=== PATIENT | female | born 2000 | race Caucasian/White ===

== ENCOUNTER 2020-08-28 20:14 | Emergency (ER) | payer OTHER ==
[~2020-08-28] VITALS: Ht 162 cm; Wt 97.9 kg
[~2020-08-28 20:14] MED LIST: AMOX-355 PO; AMX500CIP PO; CETI10TA17 PO; HYDR50CA PO; MELO-170 PO; NITR-65 PO; NYST1POW22 TP; PHEN-639 PO; PRD20T PO; TERB30CR TP
[2020-08-28 20:30] VITALS: BP 141/88
[2020-08-28] MEDS ORDERED: TRIM/SULFAMETH 160/800 (SEPTRA DS) TAB PO ONE (21:00)
[2020-08-28] MEDS ORDERED: SULF1TAB35 PO (21:05)
--- NOTE | 2020-08-28 21:05 | ED Integumentary General ---
General Chief Complaint: Skin/Wound Problems Stated Complaint: L THIGH POSS SPIDER BITE Nursing Triage Note: C/O POSSIBLE SPIDER BITE ON LEFT THIGH. FIRST NOTICED ON FRIDAY MORNING. SINCE HAS INCREASED IN REDNESS AND SWELLING AND PAIN. Source: patient Exam Limitations: no limitations History of Present Illness Date Seen by Provider: Aug 28, 2020 Time Seen by Provider: 20:45 Initial Comments Patient presents ER by private conveyance from home with her mother and chief complaint since Friday, 2 days ago she has noticed a knot that is painful nondraining from her left thigh. Painful to walk on. No fever chills nausea vomiting diarrhea. Surrounding redness. She did not see an insect or spider bite her but she suspects this is what happened. She is on control Allergies and Home Medications Allergies Coded Allergies: No Known Drug Allergies (Unverified , 03/16/13) Home Medications Amoxicillin/Potassium Clav 1 Each Tablet, 1 EACH PO BID, (Reported) Hydroxyzine Pamoate 50 Mg Capsule, 50 MG PO Q6H Prescribed by: ТАТЬЯНА RUSS on 01/27/18205 Meloxicam 7.5 Mg Tablet, 7.5 MG PO DAILY Prescribed by: JACQUI ROSE on 08/17/151834 Nitrofurantoin Monohyd/M-Cryst 100 Mg Capsule, 1 TAB PO BID Prescribed by: JACQUI ROSE on 08/17/151834 Nystatin 1 Each Powder.ea., 1 EACH TP TID Prescribed by: ТАТЬЯНА RUSS on 01/27/18205 Phenazopyridine HCl 100 Mg Tablet, 100 MG PO Q8H PRN for PAIN Prescribed by: JACQUI ROSE on 08/17/151834 Prednisone 20 Mg Tab, 40 MG PO DAILY Take 3 tabs(60mg)daily, decrease by 1/2 tab(10mg)daily. Prescribed by: JACQUI ROSE on 08/17/151834 Sulfamethoxazole/Trimethoprim 1 Each Tablet, 1 EACH PO BID Prescribed by: SHERYL RANGEL on 08/28/202104 Terbinafine HCl 30 Gm Cream..g., 30 GM TP TID Prescribed by: ТАТЬЯНА RUSS on 01/27/18205 Patient Home Medication List Home Medication List Reviewed: Yes Review of Systems Review of Systems Constitutional: No chills, No fever, No malaise EENTM: No ear discharge, No ear pain Respiratory: No cough, No short of breath Cardiovascular: No edema, No palpitations Gastrointestinal: No abdominal pain, No nausea Genitourinary: No discharge, No dysuria Musculoskeletal: No back pain, No joint pain Skin: see HPI, change in color Past Rsuyfso-Ipdbwz-Oigzkf Hx Patient Social History Alcohol Use: Denies Use 2nd Hand Smoke Exposure: Yes Recent Infectious Disease Expo: No Recent Hopitalizations: No Immunizations Up To Date PED Vaccines UTD: Yes Seasonal Allergies Seasonal Allergies: Yes (ZYRTEC) Past Medical History Surgeries: Yes (NASAL SURGERY) Respiratory: No Cardiac: No Neurological: No Genitourinary: No Gastrointestinal: No Musculoskeletal: No Endocrine: No HEENT: No Cancer: No Psychosocial: No Integumentary: No Blood Disorders: No Adverse Reaction/Blood Tranf: No Family Medical History No Pertinent Family Hx Physical Exam Vital Signs Vital Signs - First Documented 08/28/20 20:30 Temp 35.4 Pulse 72 Resp 18 B/P (MAP) 141/88 (105) Pulse Ox 98 O2 Delivery Room Air Capillary Refill : Less Than 3 Seconds General Appearance: WD/WN, no apparent distress HEENT: PERRL/EOMI, pharynx normal Cardiovascular: normal peripheral pulses, regular rate, rhythm Respiratory: no respiratory distress, no accessory muscle use Extremities: normal capillary refill, other (Erythema, calor, tenderness measuring about 6 x 12 cm and outlined with a marker. Central pore but no exudate or drainage. No fluctuance. Area of about 4 cm diameter indurated) Neurologic/Psychiatric: alert, normal mood/affect, oriented x 3 Progress/Results/Core Measures Results/Orders My Orders Orders - SHERYL RANGEL Sulfamethoxazole/Trimet Ds Tab (Bactrim (08/28/20 21:00) Medications Given in ED Current Medications Medications Dose Ordered Sig/Jamar Route Start Time Stop Time Status Last Admin Dose Admin Trimethoprim/ Sulfamethoxazole 1 ea ONCE ONCE PO 08/28/20 21:00 08/28/20 21:01 DC 08/28/20 21:20 1 EA Vital Signs/I&O 08/28/20 20:30 Temp 35.4 Pulse 72 Resp 18 B/P (MAP) 141/88 (105) Pulse Ox 98 O2 Delivery Room Air Blood Pressure Mean: 105 Progress Progress Note : Time: 03:53 Progress Note Erysipelas. We will put her on antibiotics. Conservative counseling and return precautions given. Departure Impression Primary Impression: Erysipelas of left lower extremity Additional Impression: Arthropod bite of left thigh Qualified Codes: S70.362A - Insect bite (nonvenomous), left thigh, initial encounter; W57.XXXA - Bitten or stung by nonvenomous insect and other nonvenomous arthropods, initial encounter Disposition: 01 HOME, SELF-CARE Condition: Stable Departure-Patient Inst. Decision time for Depature: 21:03 Referrals: JESSENIA BOWDEN DO (PCP/Family) Primary Care Physician Patient Instructions: Cellulitis and Erysipelas (Skin Infections) Add. Discharge Instructions: The initial bite is not the problem however bacterial infection subsequent to the bite is what causes most of the redness and pain. Warm moist heat applied directly over the wound as often as necessary for pain is encouraged. Tylenol and Motrin as necessary. Bactrim 1 tablet twice a day with food for the next week. Expect to see improvement by day 3 or 4 on antibiotics. Return to the ER promptly for severe fever above 102.5, intractable vomiting, intractable pain or other worrisome symptoms such as redness and swelling going up into your trunk. All discharge instructions reviewed with patient and/or family. Voiced understanding. Scripts Sulfamethoxazole/Trimethoprim (Bactrim Ds Tablet) 1 Each Tablet 1 EACH PO BID for 7 Days, #14 TAB 0 Refills Prov: SHERYL RANGEL 08/28/20 SHERYL RANGEL Aug 28, 2020 21:05
== END 2020-08-28 21:18 | disposition home or self-care (01) ==
LOC: EDUNIT# 20:14 → ER 20:16
DX: S70.362A Insect bite (nonvenomous), left thigh, initial encounter (principal); A46 Erysipelas; Z77.22 Contact with and (suspected) exposure to environmental tobacco smoke (acute) (chronic); Z79.52 Long term (current) use of systemic steroids; W57.XXXA Bitten or stung by nonvenomous insect and other nonvenomous arthropods, initial encounter
CPT/HCPCS: 99283

== ENCOUNTER 2023-03-13 11:55 | Emergency (ER) | payer OTHER ==
[~2023-03-13] VITALS: Ht 160 cm; Wt 104.0 kg
[~2023-03-13 11:55] MED LIST changes: +SULF1TAB38 PO
--- NOTE | 2023-03-13 12:14 | ED Abdominal Pain ---
General Stated Complaint: PELVIC PAIN Source of Information: Patient Exam Limitations: No Limitations History of Present Illness Date Seen by Provider: Mar 13, 2023 Time Seen by Provider: 12:12 Initial Comments Patient is a 22-year-old female who presents the ED with lower abdominal pain. Pain started this morning when she woke up. Pain is described as sharp located bilateral lower pelvic worse to right lower quadrant. Pain is worse with movement. She reports nausea without vomiting. Few episodes of diarrhea. Denies of any urinary symptoms such as pain with urination frequent urination, dysuria. She denies any vaginal bleeding. Is scheduled for her menstrual cycle here in the next 1 to 2 weeks. Not concern for STDs. Denies any vaginal discharge. History of regular menstrual cycles for the past 6 months. Stopped control 6 months ago. Denies history of previous abdominal surgery. Denies taking thing for pain. She denies chest pain, shortness of breath, cough, headache, dizziness Allergies and Home Medications Allergies Coded Allergies: No Known Drug Allergies (Unverified , 03/16/13) Patient Home Medication List Home Medication List Reviewed: Yes Amoxicillin/Potassium Clav (Augmentin 500-125 Tablet) 1 Each Tablet, 1 EACH PO BID, (Reported) Entered as Reported by: RADHA PARK on 08/17/15 1623 Cephalexin (Cephalexin) 500 Mg Tablet, 500 MG PO QID Prescribed by: SIGIFREDO HOOKS on 03/13/23 1401 Hydroxyzine Pamoate (Vistaril) 50 Mg Capsule, 50 MG PO Q6H Prescribed by: ТАТЬЯНА RUSS on 01/27/18205 Meloxicam (Mobic) 7.5 Mg Tablet, 7.5 MG PO DAILY Prescribed by: JACQUI ROSE on 08/17/15 183 Nitrofurantoin Monohyd/M-Cryst (Macrobid 100 mg Capsule) 100 Mg Capsule, 1 TAB PO BID Prescribed by: JACQUI ROSE on 08/17/151834 Nystatin (Nystatin) 1 Each Powder.ea., 1 EACH TP TID Prescribed by: ТАТЬЯНА RUSS on 01/27/18205 Ondansetron (Ondansetron Odt) 4 Mg Tab.rapdis, 4 MG SL Q4H PRN for NAUSEA/VOMITING Prescribed by: SIGIFREDO HOOKS on 03/13/23 1402 Phenazopyridine HCl (Pyridium) 100 Mg Tablet, 100 MG PO Q8H PRN for PAIN Prescribed by: JACQUI ROSE on 08/17/151834 Prednisone (Prednisone) 20 Mg Tab, 40 MG PO DAILY Prescribed by: JACQUI ROSE on 08/17/151834 Sulfamethoxazole/Trimethoprim (Bactrim Ds Tablet) 1 Each Tablet, 1 EACH PO BID Prescribed by: SHERYL RANGEL on 08/28/202104 Terbinafine HCl (Lamisil At) 30 Gm Cream..g., 30 GM TP TID Prescribed by: ТАТЬЯНА RUSS on 01/27/18 0206 Review of Systems Review of Systems Constitutional: No chills, No diaphoresis EENTM: No Double Vision, No Eye Pain Respiratory: Denies Cough, Denies Orthopnea Cardiovascular: Denies Chest Pain Gastrointestinal: Abdominal Pain; Denies Diarrhea; Nausea; Denies Vomiting Genitourinary: Denies Burning, Denies Discharge, Denies Drainage, Denies Frequency Musculoskeletal: No back pain, No joint pain Skin: No change in color All Other Systems Reviewed Negative Unless Noted: Yes Past Svwztzi-Rvzlph-Jdukwv Hx Immunizations Up To Date PED Vaccines UTD: Yes Seasonal Allergies Seasonal Allergies: Yes (ZYRTEC) Past Medical History Surgeries: Yes (NASAL SURGERY) Respiratory: No Cardiac: No Neurological: No Genitourinary: No Gastrointestinal: No Musculoskeletal: No Endocrine: No HEENT: No Cancer: No Psychosocial: No Integumentary: No Blood Disorders: No Adverse Reaction/Blood Tranf: No Family Medical History No Pertinent Family Hx Physical Exam Vital Signs Vital Signs - First Documented 03/13/23 03/13/23 12:18 14:15 Temp 37.2 Pulse 98 Resp 16 B/P (MAP) 138/86 (103) Pulse Ox 98 O2 Delivery Room Air Capillary Refill : Height/Weight/BMI Height: 5'3.00" Weight: 210lbs. oz. 95.460204yj; 37.00 BMI Method:Stated General Appearance: WD/WN, no apparent distress HEENT: PERRL/EOMI, normal ENT inspection, TMs normal, pharynx normal Neck: non-tender, full range of motion, supple Respiratory: chest non-tender, lungs clear, normal breath sounds, no respiratory distress, no accessory muscle use Cardiovascular: regular rate, rhythm, no edema, no gallop, no JVD Gastrointestinal: normal bowel sounds, soft, no organomegaly, tenderness (Right lower quadrant tenderness. Normal bowel sounds throughout. No rebound or guarding.) Extremities: normal range of motion, non-tender, normal inspection, no pedal edema, no calf tenderness Neurologic/Psychiatric: [employer] regist[employer] II-XII nml as tested, no motor/sensory deficits, alert, normal mood/affect, oriented x 3 Progress/Results/Core Measures Results/Orders Lab Results Laboratory Tests Test 03/13/23 12:14 03/13/23 12:58 03/13/23 13:50 Range/Units Urine Color YELLOW Urine Clarity CLEAR Urine pH 5.0 5-9 Urine Specific [place] >=1.030 1.016-1.022 Urine Protein NEGATIVE NEGATIVE Urine Glucose (UA) NEGATIVE NEGATIVE Urine Ketones NEGATIVE NEGATIVE Urine Nitrite NEGATIVE NEGATIVE Urine Bilirubin NEGATIVE NEGATIVE Urine Urobilinogen 0.2 < = 1.0 MG/DL Urine Leukocyte Esterase TRACE H NEGATIVE Urine RBC (Auto) NEGATIVE NEGATIVE Urine RBC RARE /HPF Urine WBC 10-25 H /HPF Urine Squamous Epithelial Cells 5-10 /HPF Urine Crystals NONE /LPF Urine Bacteria MODERATE H /HPF Urine Casts NONE /LPF Urine Mucus NEGATIVE /LPF Urine Culture Indicated YES Urine Test NEGATIVE NEGATIVE White Blood Count 14.2 H 4.3-11.0 10^3/uL Red Blood Count 4.68 3.80-5.11 10^6/uL Hemoglobin 12.7 11.5-16.0 g/dL Hematocrit 40 35-52 % Mean Corpuscular Volume 84 80-99 fL Mean Corpuscular Hemoglobin 27 25-34 pg Mean Corpuscular Hemoglobin Concent 32 32-36 g/dL Red Cell Distribution Width 13.6 10.0-14.5 % Platelet Count 409 H 130-400 10^3/uL Mean Platelet Volume 12.1 9.0-12.2 fL Immature Granulocyte % (Auto) 0 % Neutrophils (%) (Auto) 70 42-75 % Lymphocytes (%) (Auto) 21 12-44 % Monocytes (%) (Auto) 6 0-12 % Eosinophils (%) (Auto) 2 0-10 % Basophils (%) (Auto) 1 0-10 % Neutrophils # (Auto) 9.9 H 1.8-7.8 10^3/uL Lymphocytes # (Auto) 3.0 1.0-4.0 10^3/uL Monocytes # (Auto) 0.9 0.0-1.0 10^3/uL Eosinophils # (Auto) 0.3 0.0-0.3 10^3/uL Basophils # (Auto) 0.1 0.0-0.1 10^3/uL Immature Granulocyte # (Auto) 0.1 0.0-0.1 10^3/uL Neutrophils % (Manual) 68 % Lymphocytes % (Manual) 24 % Monocytes % (Manual) 2 % Eosinophils % (Manual) 5 % Basophils % (Manual) 1 % Band Neutrophils 0 % Blood Morphology Comment NORMAL Sodium Level 137 135-145 MMOL/L Potassium Level 4.5 3.6-5.0 MMOL/L Chloride Level 108 H 98-107 MMOL/L Carbon Dioxide Level 16 L 21-32 MMOL/L Anion Gap 13 5-14 MMOL/L Blood Urea Nitrogen 13 7-18 MG/DL Creatinine 0.82 0.60-1.30 MG/DL Estimat Glomerular Filtration Rate 104 BUN/Creatinine Ratio 16 Glucose Level 89 70-105 MG/DL Calcium Level 8.9 8.5-10.1 MG/DL Corrected Calcium 8.9 8.5-10.1 MG/DL Total Bilirubin 0.3 0.1-1.0 MG/DL Aspartate Amino Transf (AST/SGOT) 27 5-34 U/L Alanine Aminotransferase (ALT/SGPT) 30 0-55 U/L Alkaline Phosphatase 81 40-136 U/L Total Protein 7.8 6.4-8.2 GM/DL Albumin 4.0 3.2-4.5 GM/DL Lipase 41 8-78 U/L Smear Scan Micro Results Microbiology 03/13/23 Wet Prep - Final, Complete My Orders Orders - JOY HAMPTON Ua Culture If Indicated (03/13/23 11:58) Cbc And Automated Diff (03/13/23 12:10) Comprehensive Metabolic Panel (03/13/23 12:10) Lipase (03/13/23 12:10) Hcg,Qualitative Urine (03/13/23 12:10) Ct Abd/Pelv W (Appendicitis) (03/13/23 12:10) Ketorolac Injection (Ketorolac Injection (03/13/23 12:30) Ondansetron Injection (Ondansetron Inj (03/13/23 12:30) Urine Culture (03/13/23 12:14) Iohexol Injection (Omnipaque 350 Mg/Ml 1 (03/13/23 12:45) Received Contrast (Hold Metformin- Contr (03/13/23 12:45) Ns (Ivpb) 100 Ml (Sodium Chloride 0.9% 1 (03/13/23 12:45) Manual Differential (03/13/23 12:58) Wet Prep (03/13/23 13:45) Chlamydia Trachomatis Swab (03/13/23 13:45) Neisseria Gonorrhea Swab (03/13/23 13:45) Medications Given in ED Current Medications Medications Dose Ordered Sig/Jamar Route Start Time Stop Time Status Last Admin Dose Admin Ketorolac Tromethamine 30 mg ONCE ONCE IVP 03/13/23 12:30 03/13/23 12:31 DC 03/13/23 12:49 30 MG Ondansetron HCl 4 mg ONCE ONCE IVP 03/13/23 12:30 03/13/23 12:31 DC 03/13/23 12:49 4 MG Vital Signs/I&O 03/13/23 03/13/23 12:18 14:15 Temp 37.2 Pulse 98 80 Resp 16 B/P (MAP) 138/86 (103) 120/91 Pulse Ox 98 98 O2 Delivery Room Air Departure Communication (PCP) Patient is a 22-year-old female with no previous abdominal surgery who presents ED with lower abdominal pain in her pelvic. Scheduled for menstrual cycle 2 days. Nausea with a few episode of diarrhea. Not necessarily concern for STDs. No urinary symptoms. Right and left lower quadrant worse on the right. Bowel sounds noted throughout. CBC, CMP, lipase, urinalysis with wet prep. Self swab. Wet prep was unremarkable. STD cultures pending. Urinalysis with leukocytes and white blood cells concern for UTI. CBC showed elevated white blood count of 14. Chemistry grossly unremarkable. Due to location pain CT abdomen pelvis was ordered. The prominent lymph nodes in the right lower quadrant perhaps the basis of mesenteric adenitis. Free fluid in the pelvis likely owing to recent rupture of an ovarian cyst. She did receive Toradol Zofran with improvement of symptoms. Reassessed the abdomen without any tenderness. No evidence of colitis, appendicitis or diverticulitis. Patient is currently pain-free. Will discharge with Keflex. Alternate Tylenol and ibuprofen at home. If any worsening symptoms such as pain, fever, intractable vomiting to return back to ED. Follow-up your PCP 2 to 3 days for reevaluation. Negative for . Wet prep unremarkable. Impression Primary Impression: Abdominal pain Additional Impression: UTI (urinary tract infection) Disposition: HOME, SELF-CARE Condition: Stable Departure-Patient Inst. Decision time for Depature: 14:01 Referrals: JESSENIA BOWDEN DO (PCP/Family) Primary Care Physician Patient Instructions: Urinary tract infections in adults Add. Discharge Instructions: Recommend taken anti-inflammatories for pain. Recommend staying hydrated. If any worsening pain, fever, vomiting to return back to ED. Scripts Ondansetron (Ondansetron Odt) 4 Mg Tab.rapdis 4 MG SL Q4H PRN for NAUSEA/VOMITING, #6 TAB Prov: JOY HAMPTON 03/13/23 Cephalexin (Cephalexin) 500 Mg Tablet 500 MG PO QID for 7 Days, #14 TAB Prov: JOY HAMPTON 03/13/23 JOY HAMPTON Mar 13, 2023 12:14
[2023-03-13] MEDS ORDERED: ONDANSETRON INJECTION 4 MG/2 ML (SDV) IVP ONE (12:30)
[2023-03-13] MEDS ORDERED: KETOROLAC INJ 30 MG/ML VIAL IVP ONE (12:30)
[2023-03-13 12:35] LABS: CLARITY,URINE CLEAR; COLOR,URINE YELLOW
[2023-03-13 12:36] LABS: BACTERIA,URINE MODERATE /HPF; BILIRUBIN,URINE NEGATIVE (NEGATIVE); GLUCOSE, URINE (UA) NEGATIVE (NEGATIVE); KETONES,URINE NEGATIVE (NEGATIVE); LEUKOCYTE ESTERASE ,URINE TRACE (NEGATIVE); NITRITE,URINE NEGATIVE (NEGATIVE); PROTEIN,URINE NEGATIVE (NEGATIVE); RBC,URINE RARE /HPF
[2023-03-13] MEDS ORDERED: NS 100 ML (IVPB) BAG IV ONE (12:45)
[2023-03-13] MEDS ORDERED: IOHEXOL 350 MG/ML 100 ML (OMNIPAQUE 350) VIAL IV ONE (12:45)
[2023-03-13] MEDS ORDERED: HOLD METFORMIN - RECEIVED CONTRAST 20 ML VIAL IV SCH (12:45)
[2023-03-13 13:03] LABS: BASOPHILS # (AUTO) 0.1 10^3/uL (0.0-0.1); BASOPHILS % (AUTO) 1 % (0-10); EOSINOPHILS # (AUTO) 0.3 10^3/uL (0.0-0.3); EOSINOPHILS % (AUTO) 2 % (0-10); HEMATOCRIT 40 % (35-52); HEMOGLOBIN 12.7 g/dL (11.5-16.0); LYMPHOCYTES % (AUTO) 21 % (12-44); MEAN CORPUSCULAR HEMOGLOBIN 27 pg (25-34); MEAN CORPUSCULAR HGB CONC 32 g/dL (32-36); MEAN CORPUSCULAR VOLUME 84 fL (80-99); MEAN PLATELET VOLUME 12.1 fL (9.0-12.2); MONOCYTES # (AUTO) 0.9 10^3/uL (0.0-1.0); MONOCYTES % (AUTO) 6 % (0-12); NEUTROPHILS # (AUTO) 9.9 10^3/uL (1.8-7.8); NEUTROPHILS % (AUTO) 70 % (42-75); PLATELET COUNT 409 10^3/uL (130-400); WHITE BLOOD COUNT 14.2 10^3/uL (4.3-11.0)
[2023-03-13 13:14] LABS: POTASSIUM 4.5 MMOL/L (3.6-5.0)
[2023-03-13 13:15] LABS: CALCIUM 8.9 MG/DL (8.5-10.1)
[2023-03-13 13:16] LABS: TOTAL PROTEIN 7.8 GM/DL (6.4-8.2)
[2023-03-13 13:18] LABS: BILIRUBIN,TOTAL 0.3 MG/DL (0.1-1.0)
[2023-03-13 13:20] LABS: CREATININE SERUM 0.82 MG/DL (0.60-1.30)
--- NOTE | 2023-03-13 13:35 | Diagnostic Imaging Report ---
PROCEDURE: CT abdomen and pelvis with contrast, rule out appendicitis. TECHNIQUE: Multiple contiguous axial images were obtained through the abdomen and pelvis after the administration of intravenous contrast. All CT scans use one or more of the following dose optimizing techniques: automated exposure control, MA and/or KvP adjustment based on patient size and exam type or iterative reconstruction. INDICATION: Lower abdominal pain and pelvic pain as well as nausea and diarrhea. COMPARISON: No prior studies are available for comparison. FINDINGS: The lung bases are clear. The liver and gallbladder are unremarkable. The pancreas and spleen are unremarkable. No adrenal mass is detected. Kidneys are unremarkable. Aorta is nonaneurysmal. The small and large bowel loops are normal in caliber. The appendix is visualized and appears unremarkable. There are multiple prominent lymph nodes in the right lower quadrant, perhaps on the basis of mesenteric adenitis. There is some free fluid in the pelvis which is likely physiologic. Bladder and uterus are unremarkable. No definite inflammatory changes are seen. IMPRESSION: 1. No CT evidence of acute appendicitis. There are prominent lymph nodes in the right lower quadrant, perhaps on the basis of mesenteric adenitis. 2. Free fluid in the pelvis, likely owing to recent rupture of an ovarian cyst. Dictated by: Dictated on workstation # [id number]
[2023-03-13 13:47] LABS: BAND NEUTROPHILS 0 %; BASOPHILS % (MANUAL) 1 %; EOSINOPHILS % (MANUAL) 5 %; LYMPHOCYTES % (MANUAL) 24 %; MONOCYTES % (MANUAL) 2 %; NEUTROPHILS % (MANUAL) 68 %
[2023-03-13 13:48] LABS: RBC MORPH NORMAL
[2023-03-13] MEDS ORDERED: CEPH500T PO (14:01)
[2023-03-13] MEDS ORDERED: ONDA4TAB11 SL (14:02)
[2023-03-13 14:15] VITALS: BP 120/91
== END 2023-03-13 14:17 | disposition home or self-care (01) ==
LOC: EDUNIT# 11:55 → ER 11:56
DX: N39.0 Urinary tract infection, site not specified (principal); R11.2 Nausea with vomiting, unspecified; R19.7 Diarrhea, unspecified
CPT/HCPCS: 36415; 74177; 80053; 81000; 83690; 84703; 85007; 85027; 87088; 87210; 87491; 87591